=== PATIENT | male | born 1960 | race Caucasian/White ===

== ENCOUNTER 2023-02-15 14:02 | Emergency (ER) | payer MEDICARE, MEDICAID ==
[~2023-02-15] VITALS: Ht 185.4 cm; Wt 68.2 kg
[2023-02-15 14:09] VITALS: TEMP 98.6
[2023-02-15 15:13] LABS: BASOPHILS # (AUTO) 0.1 X10'3 (0-0.2); BASOPHILS % (AUTO) 0.5 % (0-1); EOSINOPHILS % (AUTO) 0.3 % (0-6); HEMATOCRIT 49.7 % (42.0-52.0); HEMOGLOBIN 16.8 g/dl (14.0-17.9); LYMPHOCYTES # (AUTO) 1.7 X10'3 (1.1-4.8); LYMPHOCYTES % (AUTO) 15.8 % (21-51); MEAN CORPUSCULAR HEMOGLOBIN 33.5 PG (27.0-31.0); MEAN CORPUSCULAR HGB CONC 33.7 g/dL (33.0-36.5); MEAN CORPUSCULAR VOLUME 99.3 FL (78-98); MEAN PLATELET VOLUME 8.6 FL (7.4-10.4); MONOCYTES % (AUTO) 9.1 % (2-12); NEUTROPHILS % (AUTO) 74.3 % (42-75); PLATELET COUNT 386 X10'3 (140-440); RED BLOOD COUNT 5.01 X10'6 (4.70-6.10); RED CELL DISTRIBUTION WIDTH 14.5 % (11.5-14.5); WHITE BLOOD COUNT 10.7 X10'3 (4.5-11.0)
[2023-02-15 15:24] LABS: ALANINE AMINOTRANSFERASE 23 U/L (12-78); ALBUMIN 4.3 G/DL (3.4-5.0); ALKALINE PHOSPHATASE 109 IU/L (46-116); ANION GAP 10 (8-16); ASPARTATE AMINO TRANSFERASE 14 U/L (10-37); BILIRUBIN,TOTAL 0.7 MG/DL (0.1-1.0); BLOOD UREA NITROGEN 24 MG/DL (7-18); BUN/CREATININE RATIO 19.4 (10.0-20.0); CALCIUM 9.9 MG/DL (8.5-10.1); CHLORIDE 95 MMOL/L (99-107); CREATININE 1.24 MG/DL (0.60-1.10); GLUCOSE 116 MG/DL (70-104); LIPASE < 50 U/L (73-393); POTASSIUM 3.7 MMOL/L (3.5-5.1); SODIUM 138 MMOL/L (135-145); TOTAL CARBON DIOXIDE 33.3 MMOL/L (24-32); TOTAL PROTEIN 8.6 G/DL (6.4-8.2); eCRCL 60 ML/MIN; eGFR 59 ML/MIN
[2023-02-15 19:44] VITALS: BP 124/85; PULSE 93; O2SAT 99
[2023-02-15 21:02] LABS: ETHANOL < 10 MG/DL (<10)
[2023-02-15] MEDS ORDERED: normal saline 1000ML IV soln IVB ONE (21:05)
[2023-02-15] MEDS ORDERED: fentaNYL/PF 50MCG/1 ML 2ML syringe IV ONE (21:05)
[2023-02-15] MEDS ORDERED: metoclopramide 5 mg/ml inj IV ONE (21:05)
[2023-02-15] MEDS ORDERED: ondansetron/PF 4mg/2ml inj IV ONE (21:05)
[2023-02-15 21:50] VITALS: RESP 16
[2023-02-15] MEDS ORDERED: methylnaltrexone br 12mg/0.6ml inj***SubQ only SQ ONE (22:15)
[2023-02-15] MEDS ORDERED: ketorolac trometh. 30mg/ml inj. IV ONE (22:20)
[2023-02-15] MEDS ORDERED: bisacodyl 5mg tablet.DR PO ONE (22:20)
[2023-02-15] MEDS ORDERED: lactulose 20gm/30ml cup PO ONE (22:20)
[2023-02-15] MEDS ORDERED: BISA-78 PO (22:24)
[2023-02-15] MEDS ORDERED: POLY17PO10 PO (22:24)
== END 2023-02-15 22:43 | disposition home or self-care (01) ==
LOC: ER 14:03
DX: K59.00 Constipation, unspecified (principal); R11.2 Nausea with vomiting, unspecified
CPT/HCPCS: 36415; 74176; 80053; 80320; 83690; 84145; 85025; 96361; 96372; 96374; 96375; 99285; J1885; J2212; J2405; J2765; J3010; J7030

== ENCOUNTER → 2023-03-06 | Day surgery (SDC) | payer MEDICARE, MEDICAID ==
[~2023-03-06] MED LIST: BISA-78 PO; POLY17PO10 PO
== END | disposition home or self-care (01) ==
LOC: RAD 09:21
PROVIDERS: ATTEND Surgery
DX: K21.9 Gastro-esophageal reflux disease without esophagitis (principal); K44.9 Diaphragmatic hernia without obstruction or gangrene
CPT/HCPCS: 78264; A9541

== ENCOUNTER 2023-03-27 05:15 | Observation (INO) | payer MEDICARE, MEDICAID ==
[2023-03-20 15:13] LABS: BASOPHILS # (AUTO) 0.1 X10'3 (0-0.2); BASOPHILS % (AUTO) 0.7 % (0-1); EOSINOPHILS # (AUTO) 0.2 X10'3 (0-0.9); EOSINOPHILS % (AUTO) 2.2 % (0-6); LYMPHOCYTES # (AUTO) 1.9 X10'3 (1.1-4.8); LYMPHOCYTES % (AUTO) 20.9 % (21-51); MEAN CORPUSCULAR HEMOGLOBIN 34.1 PG (27.0-31.0); MEAN CORPUSCULAR HGB CONC 33.6 g/dL (33.0-36.5); MEAN CORPUSCULAR VOLUME 101.6 FL (78-98); MEAN PLATELET VOLUME 7.9 FL (7.4-10.4); MONOCYTES # (AUTO) 0.7 X10'3 (0-0.9); MONOCYTES % (AUTO) 7.3 % (2-12); NEUTROPHILS # (AUTO) 6.4 X10'3 (1.8-7.7); NEUTROPHILS % (AUTO) 68.9 % (42-75); PRE OP HEMATOCRIT 43.1 % (42.0-52.0); PRE OP HEMOGLOBIN 14.5 g/dL (14.0-17.9); PRE OP PLATELET COUNT 412 X10'3 (140-440); PRE OP WHITE BLOOD COUNT 9.3 10'3 (4.8-10.8); RED BLOOD COUNT 4.24 X10'6 (4.70-6.10); RED CELL DISTRIBUTION WIDTH 15.4 % (11.5-14.5)
[2023-03-20 15:27] LABS: ALBUMIN 3.9 G/DL (3.4-5.0); ALKALINE PHOSPHATASE 99 IU/L (46-116); BLOOD UREA NITROGEN 9 MG/DL (7-18); BUN/CREATININE RATIO 8.3 (10.0-20.0); CALCIUM 9.4 MG/DL (8.5-10.1); CHLORIDE 105 MMOL/L (99-107); CREATININE 1.08 MG/DL (0.60-1.10); PRE OP ALT 19 U/L (30-65); PRE OP ANION GAP 5 (8-16); PRE OP AST 11 U/L (10-37); PRE OP BILIRUB, TOTAL 0.4 MG/DL (0.0-1.0); PRE OP GLUCOSE 93 MG/DL (70-104); PRE OP POTASSIUM 4.3 MMOL/L (3.4-5.1); PRE OP SODIUM 139 MMOL/L (135-145); TOTAL CARBON DIOXIDE 29.4 MMOL/L (24-32); TOTAL PROTEIN 7.7 G/DL (6.4-8.2); eGFR 70 ML/MIN
[~2023-03-27] VITALS: Ht 185.4 cm; Wt 68.0 kg
[2023-03-27] VITALS (32 sets, daily range): BP systolic 107–148; BP diastolic 66–97; PULSE 66–88; RESP 8–18; TEMP 97.3–98.7; O2SAT 96–100
[~2023-03-27 05:15] MED LIST changes: -BISA-78 PO; +DULO60CA65 PO; +LEVO75TA7 PO; +ONDA8TAB13 PO; -POLY17PO10 PO; +PROP10TA10 PO; +QUET200T31 PO; +ringers solution, lacted 1,000 ML IV SCH
[2023-03-27] MEDS ORDERED: famotidine 20mg tablet PO ONE (05:30)
[2023-03-27] MEDS ORDERED: DOCUMENT DATE & TIME OF BETA-BLOCKER PO ONE (05:30)
[2023-03-27] MEDS ORDERED: cefazolin 2gm/D5W 100mL 100 ML IV ONE (05:30)
[2023-03-27] MEDS ORDERED: LIDOcaine 1% 30ml preserv. free vial ONE (06:41)
[2023-03-27] MEDS ORDERED: BUPIVAcaine/PF 2.5mg/ml (0.25%) 10ml vial ONE (06:41)
[2023-03-27] MEDS ORDERED: labetalol 20mg/4ml (5mg/ml) syringe IV PRN (07:40)
[2023-03-27] MEDS ORDERED: ringers solution, lacted 1,000 ML IV SCH (07:40)
[2023-03-27] MEDS ORDERED: proCHLORperazine 10 MG/2 ml inj IV PRN (07:40)
[2023-03-27] MEDS ORDERED: morphine 2 MG/ML inj. syringe IV PRN (07:40)
[2023-03-27] MEDS ORDERED: morphine 4 MG/ML inj SYRINge IV PRN (07:40)
[2023-03-27] MEDS ORDERED: ondansetron/PF 4mg/2ml inj IV PRN ×2 (07:40→10:40)
[2023-03-27] MEDS ORDERED: enalaprilat dihydrate 2.5mg/2ml vial IV PRN (07:40)
[2023-03-27] MEDS ORDERED: meperidine/PF 25mg/ml syringe IV PRN ×2 (07:40)
[2023-03-27] MEDS ORDERED: propofol inj 20 ML IV ONE (07:45)
[2023-03-27] MEDS ORDERED: LIDOcaine 2% (20mg/ml) 5ml vial ONE (07:45)
[2023-03-27] MEDS ORDERED: midazolam 1 mg/ML 2ml injection ONE (07:45)
[2023-03-27] MEDS ORDERED: fentaNYL /PF 50mcg/ml 5ml ampule ONE (07:45)
[2023-03-27] MEDS ORDERED: dexamethasone sod phosphate 4mg/ml inj. ONE (07:46)
[2023-03-27] MEDS ORDERED: rocuronium 10mg/ml inj IV ONE ×2 (07:46→09:30)
[2023-03-27] MEDS ORDERED: LIDOcaine 2% jelly 6ml syringe ***for topical use only ONE (07:47)
[2023-03-27] MEDS ORDERED: sevoflurane 250ml liquid IH ONE (08:07)
[2023-03-27] MEDS ORDERED: glycopyrrolate 0.2mg/ml inj ONE (08:07)
[2023-03-27] MEDS ORDERED: acetaminophen 1000 MG/100ml vial IV ONE (08:07)
[2023-03-27] MEDS ORDERED: neostigmine methylsulfate 1 MG/ML 10ml vial ONE (08:07)
[2023-03-27] MEDS ORDERED: ondansetron/PF 4mg/2ml inj ONE ×2 (10:12→10:13)
[2023-03-27] MEDS ORDERED: naloxone 0.4 mg/ml inj IV PRN (10:30)
[2023-03-27] MEDS ORDERED: HYDROmorph/NS 0.2 mg/ml PCA 100 ML IV SCH (10:30)
[2023-03-27] MEDS ORDERED: normal saline 1000ml 1,000 ML IV SCH (10:30)
[2023-03-27] MEDS ORDERED: propranolol 10mg tablet PO PRN (10:35)
--- NOTE | 2023-03-27 10:35 | NUR ---
Received from OR via HOSPITAL BED, accompanied by Anesthesiologist DR TONY and report given by Anesthesiologist. PT IS GROGGY BUT RESPONDS TO VERBAL STIMULI AND FOLLOWS COMMANDS. PT PLACED ON BEDSIDE MONITOR, VSS. PT IS IN SR WITH RATE IN 80'S. PT IS RECEIVING 8L O2 TO MASK AND TOLERATING WELL WITH O2 SAT >95%, WILL TITRATE DOWN AT PT TOLERATES. PT HAS 20G PIV TO LEFT AC WITH LR INFUSING ORDERED. PT HAS 4 LAP SITES TO ABD THAT ARE CDI AND WITH DERMABOND IN PLACE. PT HAS FERNANDEZ CATH IN PLACE WITH YELLOW URINE DRAINING TO GRAVITY. PT DENIES PAIN AT THIS TIME. WILL CONTINUE TO ASSESS
[2023-03-27] MEDS ORDERED: PCA WASTE DOCUMENTATION 1 MG ML MC SCH (10:40)
[2023-03-27] MEDS: meperidine/PF 25mg/ml syringe IV PRN ×3 (10:44→12:00)
--- NOTE | 2023-03-27 10:55 | NUR ---
CHEST X-RAY TAKEN AND RT SIDED PNEUMO SEEN. DR OROZCO IS AWARE. PT IS RESTING WITH EYES OPEN, NO S/S OF DISTRESS NOTED AT THIS TIME. RR IS 12-19, O2 SAT IS >97% ON 6 L O2 TO MASK, WILL CONTINUE TO TITRATE DOWN PT TOLERATES. REPEAT CHEST X-RAY ORDERED FOR 1230. WILL CONTINUE TO ASSESS.
--- NOTE | 2023-03-27 11:45 | NUR ---
PT CONTINUES TO REST WITH EYES OPEN AND NO S/S DISTRESS NOTED AT THIS TIME. PT CONTINUES TO SAT IN HIGH 90'S-100% ON 4 L NC. WILL CONTINUE ONGOING CARE.
[2023-03-27] MEDS: HYDROmorph/NS 0.2 mg/ml PCA 100 ML IV SCH ×6 (12:09→23:00)
--- NOTE | 2023-03-27 13:10 | NUR ---
DR OROZCO NOTIFIED OF REPEAT CHEST X-RAY BEING COMPETE. PT HAS REMAINED STABLE, MAINTAINING O2 SAT > 98% ON 2L NC AND NO S/S OF DISTRESS HAS BEEN NOTED. DR OROZCO STATED DR TAM FROM IR HAS VIEWED X-RAY AND THERE HAS BEEN IMPROVEMENT. PER DR OROZCO, PT IS OKAY TO TRANSFER TO FLOOR, CONTINUOUS PULSE OXIMETRY ORDERED AND REPEAT CHEST X-RAY TO BE PERFORMED IN AM.
--- NOTE | 2023-03-27 13:48 | NUR ---
PATIENT HAS MET ALL CRITERIA FOR TRANSFER TO THE ORTHO FLOOR. VSS. DRESSINGS INTACT. BED LOW, CALL LIGHT PRESENT AND 2 RAILS UP. RN PRESENT TO ACCEPT CARE OF PATIENT AND REPORT HAS BEEN CALLED TO DRISS THACKER WHO IS COVERING FOR PRIMARY NURSE WHILE ON THEIR LUNCH BREAK. ALL QUESTIONS ANSWERED TO ACCEPTING RN.
--- NOTE | 2023-03-27 16:23 | NUR ---
[employer] HELPER documentation: I have reviewed and agree with all interventions, assessments performed and documented by Ashely HANLEY.
--- NOTE | 2023-03-27 20:15 | NUR ---
Patient in room ORTHO 4011. I have received report from Ashely HANLEY and had the opportunity to ask questions and assume patient care.
[2023-03-27] MEDS: quetiapine 100mg tablet PO SCH (21:12)
[2023-03-28] MEDS: HYDROmorph/NS 0.2 mg/ml PCA 100 ML IV SCH ×4 (01:00→07:00)
--- NOTE | 2023-03-28 05:22 | NUR ---
patient needing to be encouraged during shift to use cadd pump. pain 5/10. IS given . patient anxious at time, but states he will be ok till the morning. resting at this time. States has passed gas.
--- NOTE | 2023-03-28 05:27 | NUR ---
Diet increased to full lqd, in reference to Dr Herrera order to advance diet as tolerated to fulls.
[2023-03-28 06:00] VITALS: BP 122/76; PULSE 73; RESP 19; TEMP 97.6; O2SAT 100
--- NOTE | 2023-03-28 06:38 | NUR ---
Problems reprioritized. Patient report given, questions answered & plan of care reviewed with Radha ALAMO.
--- NOTE | 2023-03-28 06:51 | NUR ---
Patient in room ORTHO 4011. I have received report from CALLY Luna and had the opportunity to ask questions and assume patient care.
[2023-03-28 07:23] VITALS: RESP 18
--- NOTE | 2023-03-28 07:31 | NUR ---
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 Addendum: 03/28/23 at 0759 by Dacia ARNDT Amended: Links added.
[2023-03-28] MEDS: duloxetine 30mg CAPSULE.DR PO SCH (07:45)
[2023-03-28] MEDS: levoTHYROXINE 75mcg tablet PO SCH (07:46)
[2023-03-28] MEDS ORDERED: enoxaparin 40mg/0.4ml syringe SQ SCH (08:00)
[2023-03-28] MEDS: oxyCODONE/APAP 5-325mg tablet PO PRN ×3 (11:34→19:25)
[2023-03-28] MEDS ORDERED: PER5325T PO (14:04)
--- NOTE | 2023-03-28 15:00 | NUR ---
Dr. Baker TORB that it was okay to give another tablet of percocet before the 4 hours just once, but that he really should be on the one tablet of Percocet every four hours.
[2023-03-28 18:00] VITALS: BP 121/74; PULSE 79; RESP 16; TEMP 98.9; O2SAT 97
--- NOTE | 2023-03-28 18:30 | NUR ---
Problems reprioritized. Patient report given, questions answered & plan of care reviewed with CALLY Eller.
[2023-03-28] MEDS: quetiapine 100mg tablet PO SCH (19:26)
[2023-03-28 19:33] VITALS: RESP 18; O2SAT 97
--- NOTE | 2023-03-28 20:47 | NUR ---
Student documentation: I have reviewed interventions, assessments performed and documented by Benton COYLE [facility].
[2023-03-28 22:00] VITALS: BP 84/57; PULSE 78; RESP 16; TEMP 98.2; O2SAT 96
[2023-03-28 22:05] VITALS: BP 87/50; PULSE 83
[2023-03-29 02:06] VITALS: BP 124/76; PULSE 71; RESP 16; TEMP 98.6; O2SAT 97
[2023-03-29] MEDS: oxyCODONE/APAP 5-325mg tablet PO PRN (05:57)
[2023-03-29 06:00] VITALS: BP 135/91; PULSE 82; RESP 16; TEMP 97.8; O2SAT 96
--- NOTE | 2023-03-29 06:10 | NUR ---
pt waiting to be discharged. printed packet. awaiting percocet clarification.
--- NOTE | 2023-03-29 06:41 | NUR ---
reported to days. noted pt discharge packet printed and ready for discharge. pt waiting to go home. day RN states that percocet was called in to RX by Dr. Baker.
--- NOTE | 2023-03-29 06:53 | NUR ---
Patient in room ORTHO 4012. I have received report from CALLY Eller and had the opportunity to ask questions and assume patient care.
[2023-03-29] MEDS: levoTHYROXINE 75mcg tablet PO SCH (08:18)
[2023-03-29] MEDS: duloxetine 30mg CAPSULE.DR PO SCH (08:18)
== END 2023-03-29 08:30 | disposition home or self-care (01) ==
LOC: PAS 05:15 → ORTHO 4S 10:35
PROVIDERS: ADMIT Surgery; ATTEND Surgery
DX: K44.9 Diaphragmatic hernia without obstruction or gangrene (principal); K21.9 Gastro-esophageal reflux disease without esophagitis; J95.811 Postprocedural pneumothorax; E03.9 Hypothyroidism, unspecified; F41.9 Anxiety disorder, unspecified; G47.00 Insomnia, unspecified; F17.200 Nicotine dependence, unspecified, uncomplicated; Z79.899 Other long term (current) drug therapy
CPT/HCPCS: 36415; 43282; 71045; 71046; 80053; 82948; 85025; 93005; 96365; 96366; 96372; 96375; 96376; C1781; G0378; J0131; J0690; J1100; J1170; J1650; J2175; J2250; J2405; J2704; J2710; J3010; J3490; J7030; J7120; A4615; A4618; C1758